=== PATIENT | male | born 1970 | race Caucasian/White ===

== ENCOUNTER 2020-12-04 17:39 | Emergency (ER) | payer BC, MEDICARE ==
[~2020-12-04] VITALS: Ht 188 cm; Wt 118.8 kg
--- OUTSIDE RECORDS SUMMARY | 2020-12-04 18:38 | XMS ---
PreManage Notification: KAEL DE LA TORRE Security Roll Scale Man Events No recent Security Events currently on file CRITERIA MET - PDM [facility] PHONE: [phone] Zita has no Care Guidelines for this patient. EKeren VISIT COUNT (12 MO.) 1 [facility] 1 SHAINA Camarillo TOTAL 2 NOTE: Visits indicate total known visits. ED/UCC VISIT TRACKING (12 MO.) 12/04/2020 17:40 SHAINA Haynes [place] TYPE: Emergency COMPLAINT: - LT FOOT PAIN [facility] DIAGNOSES: - Cellulitis of buttock - abscess INPATIENT VISIT TRACKING (12 MO.) No inpatient visits to display in this time frame [id number]
== END 2020-12-04 19:00 | disposition home or self-care (01) ==
LOC: ED 17:39
DX: S90.32XA Contusion of left foot, initial encounter (principal); W20.8XXA Other cause of strike by thrown, projected or falling object, initial encounter; E11.42 Type 2 diabetes mellitus with diabetic polyneuropathy; I10 Essential (primary) hypertension; Z88.8 Allergy status to other drugs, medicaments and biological substances
CPT/HCPCS: 73630; 99283-25

== ENCOUNTER 2021-07-25 17:35 | Emergency (ER) | payer MEDICARE ==
[~2021-07-25] VITALS: Ht 188 cm; Wt 120.7 kg
[~2021-07-25 17:35] MED LIST: ASPIRIN81 MG PO; ATORVASTATIN CA40 MG PO; CELECOXIB100 MG PO; CYCLOBENZAPRINE10 MG PO; LANTUS100 UNITS/ SUB-Q; METFORMIN HCL1000 MG PO; METOPROLOL TART25 MG PO; OMEPRAZOLE20 MG PO; OXYCODONE HCL5 MG PO; ZOLPIDEM TARTRA10 MG PO
--- OUTSIDE RECORDS SUMMARY | 2021-07-25 17:38 | XMS ---
PreManage Notification: KAEL DE LA TORRE Security Hat Mender Events No recent Security Events currently on file CRITERIA MET - PDMP [facility] PHONE: [phone] Zita has no Care Guidelines for this patient. EKeren VISIT COUNT (12 MO.) 3 SHAINA Camarillo TOTAL 3 NOTE: Visits indicate total known visits. ED/UCC VISIT TRACKING (12 MO.) 07/25/2021 17:37 SHAINA Haynes [place] TYPE: Emergency COMPLAINT: - R FOOT INDEX TOE WOUND 03/08/2021 18:21 SHAINA Haynes [place] TYPE: Emergency COMPLAINT: - R KNEE SWELLING/INJURY DIAGNOSES: - Other long term care phlebotomist (current) drug therapy - Type 2 diabetes mellitus without complications - Allergy status to other drugs, medicaments and biological substances - Effusion, right knee - Essential (primary) hypertension - halfway (current) use of insulin - halfway (current) use of aspirin - halfway (current) use of oral hypoglycemic drugs 12/04/2020 17:40 SHAINA Haynes [place] TYPE: Emergency COMPLAINT: - LT FOOT PAIN DIAGNOSES: - Type 2 diabetes mellitus without complications - Other external cause status - Contusion of left foot, initial encounter - Contusion of left great toe without damage to nail, initial encounter - Type 2 diabetes mellitus with diabetic polyneuropathy - Contusion of left foot, initial encounter - Allergy status to other drugs, medicaments and biological substances - Essential (primary) hypertension - Other cause of strike by thrown, projected or falling object, initial encounter - Abrasion, left great toe, initial encounter - Contusion of left great toe without damage to nail, initial encounter INPATIENT VISIT TRACKING (12 MO.) No inpatient visits to display in this time frame [id number]
[2021-07-25] MEDS ORDERED: BACTRIM DS TAB1 EACH PO (19:53)
== END 2021-07-25 20:00 | disposition home or self-care (01) ==
LOC: ED 17:35
DX: L03.031 Cellulitis of right toe (principal); E11.9 Type 2 diabetes mellitus without complications; I10 Essential (primary) hypertension; Z88.8 Allergy status to other drugs, medicaments and biological substances; Z79.899 Other long term (current) drug therapy; Z79.82 Long term (current) use of aspirin; Z79.84 Long term (current) use of oral hypoglycemic drugs; Z79.4 Long term (current) use of insulin
CPT/HCPCS: 99283; A9270

== ENCOUNTER 2021-08-16 09:06 | Emergency (ER) | payer MEDICARE ==
[~2021-08-16] VITALS: Ht 188 cm; Wt 121.1 kg
[~2021-08-16 09:06] MED LIST changes: +BACTRIM DS TAB1 EACH PO
--- OUTSIDE RECORDS SUMMARY | 2021-08-16 09:08 | XMS ---
PreManage Notification: KAEL DE LA TORRE Security Head Inspector And Center Marker Events No recent Security Events currently on file CRITERIA MET - [facility] - 2 Visits in 30 Days - [facility] Current PHONE: [phone] Zita has no Care Guidelines for this patient. Day VISIT COUNT (12 MO.) 4 [facility] TOTAL 4 NOTE: Visits indicate total known visits. ED/UCC VISIT TRACKING (12 MO.) 08/16/2021 09:06 SHAINA [facility]nes [place] TYPE: Emergency COMPLAINT: - WOUND CHECK 07/25/2021 17:37 SHAINA Haynes [place] TYPE: Emergency COMPLAINT: - WOUND CHECK DIAGNOSES: - Other jail (current) drug therapy - Type 2 diabetes mellitus without complications - Cellulitis of right toe - [facility] (current) use of oral hypoglycemic drugs - Other specified disorders of the skin and subcutaneous tissue - Allergy status to other drugs, medicaments and biological substances - Essential (primary) hypertension - [facility] (current) use of insulin - termite exterminator helper (current) use of aspirin 03/08/2021 18:21 SHAINA Haynes [place] TYPE: Emergency COMPLAINT: - R KNEE SWELLING/INJURY DIAGNOSES: - Other termite exterminator helper (current) drug therapy - Type 2 diabetes mellitus without complications - Allergy status to other drugs, medicaments and biological substances - Effusion, right knee - Essential (primary) hypertension - [facility] (current) use of insulin - termite exterminator helper (current) use of aspirin - [facility] (current) use of oral hypoglycemic drugs 12/04/2020 [...] visits to display in this time frame [id number]
[2021-08-16] MEDS ORDERED: AMOX TR-K CLV1 EAC1 PO (11:59)
== END 2021-08-16 12:43 | disposition home or self-care (01) ==
LOC: ED 09:06
DX: L03.115 Cellulitis of right lower limb (principal); E11.9 Type 2 diabetes mellitus without complications; I10 Essential (primary) hypertension; Z88.8 Allergy status to other drugs, medicaments and biological substances; Z79.899 Other long term (current) drug therapy; Z79.84 Long term (current) use of oral hypoglycemic drugs; Z79.82 Long term (current) use of aspirin; Z79.4 Long term (current) use of insulin
CPT/HCPCS: 36415; 73630; 80053; 85025; 96365; 99283-25; J0295

== ENCOUNTER 2021-09-05 05:55 | Day surgery (SDC) | payer MEDICARE ==
[~2021-09-05] VITALS: Ht 188 cm; Wt 118.0 kg
[~2021-09-05 05:55] MED LIST changes: +AMOX TR-K CLV1 EAC1 PO
--- NOTE | 2021-09-05 08:03 | NUR ---
09/05/21 0803 Marianela Mckinley 7351-PATIENT ARRIVED TO PACU ON 2L OXYMASK RR EVEN. PATIENT REACTIVE TO VERBAL STIMULI OPENING EYES REMAINS VERY DROWSY AND DOZES BACK TO SLEEP. APNEIC PATIENT AROUSES AND TAKES DEEP BREATHES. IVF INFUSING. ABDOMEN SOFT. SR.
--- NOTE | 2021-09-05 09:58 | OR ---
[facility] [address], [place] [address] Signed DATE OF OPERATION: 09/05/2021 SURGEON: Mitali Kessler MD PREOPERATIVE DIAGNOSES: 1. Screening. 2. Mild anemia with hemoglobin of 11.8, mean cell volume of 85. POSTOPERATIVE DIAGNOSIS: Poor bowel prep. PROCEDURE: Colonoscopy biopsy. ESTIMATED BLOOD LOSS: None. INDICATIONS: Kael is a 50-year-old gentleman, who comes for his initial screening colonoscopy. He reminded me that I helped his just a few weeks previously. He has no lower GI complaints. There is no family history of colon cancer or polyps. Unfortunately, he has had to have neck and back surgery with metal remaining. He also has a nerve stimulator. He has to use daily oxycodone and Flexeril. In that regard, we did have monitored anesthesia care today which worked out well for him. In the office, I gave him a pamphlet on colonoscopy. He understands the nature of the test. There is risk including, but not limited to gas bloating, crampy abdominal pain, bleeding, perforation requiring surgery, and missed diagnosis. He had expressed understanding and wished to proceed. PROCEDURE NOTE: Kael was taken into our endoscopy suite and placed in the left lateral decubitus position. He was given monitored anesthesia care with propofol per our nurse golf shoe spike assembler. A digital rectal exam was performed and this was unremarkable. Really not much of anything in the way of external hemorrhoids. He had good sphincter tone. Prostate was not particularly evaluated today. The adult colonoscope had been introduced and advanced under direct visualization of the camera. Unfortunately, he had a poor bowel prep. He had several areas of thick brown liquid stool with heavy particulate matter including corn. I was able to pass very carefully around these areas up into the cecum itself. We could easily see the appendiceal orifice and the ileocecal valve. The scope was then slowly withdrawn. I would say at least 50% to 60% of his Electronically Signed By: MITALI KESSLER MD 09/05/21 0958 PATIENT NAME: KAEL DE LA TORRE OPERATIVE REPORT DATE OF : 68 REPORT #: [id number] PHYSICIAN: MITALI KESSLER MD PCP: FAWN MOONEY MD REPORT IS CONFIDENTIAL AND NOT TO BE RELEASED WITHOUT AUTHORIZATION [facility] [address], [place] [address] Signed mucosa was visualized. Otherwise, he had areas in the right colon and transverse colon we simply could not see. He also had some areas in the rectum that I could not see. Upon retroflexion of the scope, I could only see half the anus. No issues in that regard. After this, the gas was suctioned out and the colonoscope removed. Kael tolerated the procedure quite well. RECOMMENDATIONS: I will see Kael back in my office in 7 to 14 days to review his results. He needs to reschedule his colonoscopy with a double bowel prep. Mitali Kessler MD ALB/MODL /[id number] cc: MD Mitali Chavez MD Copies: FAWN MOONEY MD, ANDREW L MD ~ Electronically Signed By: MITALI KESSLER MD 09/05/21 0958 PATIENT NAME: KAEL DE LA TORRE OPERATIVE REPORT DATE OF : 68 REPORT #: [id number] PHYSICIAN: MITALI KESSLER MD PCP: FAWN MOONEY MD REPORT IS CONFIDENTIAL AND NOT TO BE RELEASED WITHOUT AUTHORIZATION
== END 2021-09-05 08:32 | disposition home or self-care (01) ==
LOC: DS 05:55 → OPS 05:55 → DS 07:30 → OPS 07:30
PROVIDERS: ATTEND Colon & Rectal Surgery
PROC: 0DJD8ZZ Inspection of Lower Intestinal Tract, Via Natural or Artificial Opening Endoscopic (ICD-10-PCS; principal; 2021-09-05 07:30)
DX: Z12.11 Encounter for screening for malignant neoplasm of colon (principal); E11.9 Type 2 diabetes mellitus without complications; I10 Essential (primary) hypertension; G89.29 Other chronic pain; F11.90 Opioid use, unspecified, uncomplicated; Z79.84 Long term (current) use of oral hypoglycemic drugs
CPT/HCPCS: J0690; J2001; J2704; J7121

== ENCOUNTER 2022-01-20 02:05 | Emergency (ER) | payer MEDICARE ==
[~2022-01-20] VITALS: Ht 188 cm; Wt 123.0 kg
--- OUTSIDE RECORDS SUMMARY | 2022-01-20 02:08 | XMS ---
PreManage Notification: KAEL DE LA TORRE Security Manager Culinary Events No recent Security Events currently on file CRITERIA MET - [facility]M [facility] PHONE: [phone] Zita has no Care Guidelines for this patient. EKeren VISIT COUNT (12 MO.) 1 [facility] SHAINA Camarillo TOTAL 5 NOTE: Visits indicate total known visits. ED/UCC VISIT TRACKING (12 MO.) 01/20/2022 02:06 SHAINA Haynes [place] TYPE: Emergency COMPLAINT: - FACIAL SWELLING [facility]20[facility]2021 11:[facility] DIAGNOSES: - Non-pressure chronic ulcer of other part of right foot with necrosis of bone - Osteomyelitis, unspecified - Type 2 diabetes mellitus with foot ulcer - Foot Wound - poss leg infection - Skin Redness With Swelling 08/16/2021 09:06 SHAINA Haynes [place] TYPE: Emergency COMPLAINT: - WOUND CHECK DIAGNOSES: - manager training (current) use of aspirin - Allergy status to other drugs, medicaments and biological substances - Other management supervisor (current) drug therapy - Type 2 diabetes mellitus without complications - Cellulitis of right lower limb - [facility] (current) use of oral hypoglycemic drugs - manager training (current) use of insulin - Essential (primary) hypertension 07/25/2021 17:37 SHAINA Haynes [place] TYPE: Emergency COMPLAINT: - WOUND CHECK DIAGNOSES: - Other specified disorders of the skin and subcutaneous tissue - Cellulitis of right toe - Other management supervisor (current) drug therapy - manager training (current) use of insulin - Allergy status to other drugs, medicaments and biological substances - [facility] (current) use of oral hypoglycemic drugs - Type 2 diabetes mellitus without complications - [facility] (current) use of aspirin - Essential (primary) hypertension 03/08/2021 18:21 SHAINA Haynes [place] TYPE: Emergency COMPLAINT: - R KNEE SWELLING/INJURY DIAGNOSES: - Essential (primary) hypertension - Allergy status to other drugs, medicaments and biological substances - Other management supervisor (current) drug therapy - [facility] (current) use of oral hypoglycemic drugs - [facility] (current) use of insulin - Effusion, right knee - Type 2 diabetes mellitus without complications - manager training (current) use of aspirin INPATIENT VISIT TRACKING (12 MO.) No inpatient visits to display in this time frame [id number]
[2022-01-20] MEDS ORDERED: ZANAFLEX4 MG PO (02:16)
[2022-01-20] MEDS ORDERED: BUPRENORPHINE HC8 MG SL (02:17)
[2022-01-20] MEDS ORDERED: PREDNISONE20 MG PO (02:43)
== END 2022-01-20 03:21 | disposition home or self-care (01) ==
LOC: ED 02:05
DX: T63.441A Toxic effect of venom of bees, accidental (unintentional), initial encounter (principal); R22.0 Localized swelling, mass and lump, head; E11.9 Type 2 diabetes mellitus without complications; I10 Essential (primary) hypertension; Z88.8 Allergy status to other drugs, medicaments and biological substances; Z79.899 Other long term (current) drug therapy; Z79.82 Long term (current) use of aspirin; Z79.4 Long term (current) use of insulin
CPT/HCPCS: J1200; J2930

== ENCOUNTER → 2022-02-07 | Emergency (ER) | payer MEDICARE ==
[~2022-02-07] VITALS: Ht 188 cm; Wt 115.5 kg
[~2022-02-07] MED LIST changes: +BUPRENORPHINE HC8 MG SL; +PREDNISONE20 MG PO; +REGLAN10 MG PO; +ZANAFLEX4 MG PO
--- OUTSIDE RECORDS SUMMARY | 2022-02-07 18:08 | XMS ---
PreManage Notification: KAEL DE LA TORRE Security Customer Assistant Events No recent Security Events currently on file CRITERIA MET - [facility] - 2 Visits in 30 Days [facility] PHONE: [phone] Zita has no Care Guidelines for this patient. Day VISIT COUNT (12 MO.) 1 [facility] Michaela Simpson [address] [place] [address] TOTAL 6 NOTE: Visits indicate total known visits. ED/UCC VISIT TRACKING (12 MO.) 02/07/2022 17:27 SHAINA Pierson TYPE: Emergency COMPLAINT: - VOMITING 01/20/2022 02:06 SHAINA Pierson TYPE: Emergency COMPLAINT: - FACIAL SWELLING DIAGNOSES: - Allergy status to other drugs, medicaments and biological substances - Type 2 diabetes mellitus without complications - intermediate accountant (current) use of aspirin - Other jail (current) drug therapy - Essential (primary) hypertension - Localized swelling, mass and lump, head - intermediate accountant (current) use of insulin - Toxic effect of venom of bees, accidental (unintentional), initial encounter [facility]21 [facility] DIAGNOSES: - Non-pressure chronic ulcer of other part of right foot with necrosis of bone - Osteomyelitis, unspecified - Type 2 diabetes mellitus with foot ulcer - Foot Wound - poss leg infection - Skin Redness With Swelling 08/16/2021 09:06 SHAINA Haynes [place] TYPE: Emergency COMPLAINT: - WOUND CHECK DIAGNOSES: - intermediate accountant (current) use of aspirin - Allergy status to other drugs, medicaments and biological substances - Other terminal manager (current) drug therapy - Type 2 diabetes mellitus without complications - Cellulitis of right lower limb - intermediate accountant (current) use of oral hypoglycemic drugs - intermediate accountant (current) use of insulin - Essential (primary) hypertension 07/25/2021 17:37 SHAINA Haynes [place] TYPE: Emergency COMPLAINT: - WOUND CHECK DIAGNOSES: - Other specified disorders of the skin and subcutaneous tissue - Cellulitis of right toe - Other jail (current) drug therapy - intermediate (current) use of insulin - Allergy status to other drugs, medicaments and biological substances - intermediate (current) use of oral hypoglycemic drugs - Type 2 diabetes mellitus without complications - intermediate (current) use of aspirin - Essential (primary) hypertension 03/08/2021 18:21 SHAINA Haynes [place] TYPE: Emergency COMPLAINT: - R KNEE SWELLING/INJURY DIAGNOSES: - Essential (primary) hypertension - Allergy status to other drugs, medicaments and biological substances - Other jail (current) drug therapy - intermediate (current) use of oral hypoglycemic drugs - intermediate accountant (current) use of insulin - Effusion, right knee - Type 2 diabetes mellitus without complications - intermediate (current) use of aspirin INPATIENT VISIT TRACKING (12 MO.) No inpatient visits to display in this time frame [id number]
--- NOTE | 2022-02-08 07:35 | EKG ---
[facility] [address] [facility] [place] [address] Signed Normal sinus rhythm Normal ECG No previous ECGs available Confirmed by NINA DELANEY MD ([id number]) on 02/08/2022 7:35:00 AM Electronically Signed By: NINA DELANEY MD 02/08/22 0735 PATIENT NAME: KAEL DE LA TORRE HELADIO Electrocardiogram DATE OF : 68 PHYSICIAN: NINA DELANEY MD REPORT #: [id number] REPORT IS CONFIDENTIAL AND NOT TO BE RELEASED WITHOUT AUTHORIZATION
== END ==
LOC: ED 17:27
DX: E11.43 Type 2 diabetes mellitus with diabetic autonomic (poly)neuropathy (principal); K31.84 Gastroparesis; I10 Essential (primary) hypertension; Z79.899 Other long term (current) drug therapy; Z79.4 Long term (current) use of insulin; Z79.84 Long term (current) use of oral hypoglycemic drugs
CPT/HCPCS: 36415; 80053; 83690; 84484; 85025; 93005; 93010; 96374; 96375; 99284-25; J2405; J2765; J7121

== ENCOUNTER 2022-06-21 12:11 | Emergency (ER) | payer MEDICARE ==
[~2022-06-21] VITALS: Ht 188 cm; Wt 120.5 kg
--- OUTSIDE RECORDS SUMMARY | 2022-06-21 12:14 | XMS ---
PreManage Notification: KAEL DE LA TORRE Security Seo Executive Events No recent Security Events currently on file CRITERIA MET - PDM [facility] Current PHONE: [phone] Zita has no Care Guidelines for this patient. EKeren VISIT COUNT (12 MO.) 1 Jose Rafael Ott M[facility] SHAINA Camarillo TOTAL 6 NOTE: Visits indicate total known visits. ED/UCC VISIT TRACKING (12 MO.) 06/21/2022 12:12 SHAINA Haynes [place] TYPE: Emergency COMPLAINT: - TOE PAIN 02/07/2022 17:27 SHAIAN Haynes [place] TYPE: Emergency COMPLAINT: - VOMITING DIAGNOSES: - Other custodial (current) drug therapy - rn long term care (current) use of oral hypoglycemic drugs - Essential (primary) hypertension - rn long term care (current) use of insulin - Nausea with vomiting, unspecified - Type 2 diabetes mellitus with diabetic autonomic (poly)neuropathy - Gastroparesis 01/20/2022 02:06 SHAINA Haynes [place] TYPE: Emergency COMPLAINT: - FACIAL SWELLING DIAGNOSES: - Localized swelling, mass and lump, head - residential (current) use of insulin - Toxic effect of venom of bees, accidental (unintentional), initial encounter - Allergy status to other drugs, medicaments and biological substances - Type 2 diabetes mellitus without complications - residential (current) use of aspirin - Other ad terminal makeup operator (current) drug therapy - Essential (primary) hypertension [facility] DIAGNOSES: - poss leg infection - Skin Redness With Swelling - Non-pressure chronic ulcer of other part of right foot with necrosis of bone - Osteomyelitis, unspecified - Type 2 diabetes mellitus with foot ulcer - Foot Wound 08/16/2021 09:06 SHAINA Pierson TYPE: Emergency COMPLAINT: - WOUND CHECK DIAGNOSES: - residential (current) use of oral hypoglycemic drugs - residential (current) use of insulin - Essential (primary) hypertension - residential (current) use of aspirin - Allergy status to other drugs, medicaments and biological substances - Other custodial (current) drug therapy - Type 2 diabetes mellitus without complications - Cellulitis of right lower limb 07/25/2021 17:37 SHAINA Pierson TYPE: Emergency COMPLAINT: - WOUND CHECK DIAGNOSES: - rn long term care (current) use of oral hypoglycemic drugs - Type 2 diabetes mellitus without complications - rn long term care (current) use of aspirin - Essential (primary) hypertension - Other specified disorders of the skin and subcutaneous tissue - Cellulitis of right toe - Other ad terminal makeup operator (current) drug therapy - rn long term care (current) use of insulin - Allergy status to other drugs, medicaments and biological substances INPATIENT VISIT TRACKING (12 MO.) No inpatient visits to display in this time frame [id number]
[2022-06-21] MEDS ORDERED: FLUTICASONE PRO16 GM NAS (13:15)
[2022-06-21] MEDS ORDERED: AMOX TR-K CLV1 EAC1 PO (14:45)
== END 2022-06-21 14:58 | disposition home or self-care (01) ==
LOC: ED 12:11
DX: S92.411A Displaced fracture of proximal phalanx of right great toe, initial encounter for closed fracture (principal); L03.031 Cellulitis of right toe; E11.65 Type 2 diabetes mellitus with hyperglycemia; I10 Essential (primary) hypertension; Z88.8 Allergy status to other drugs, medicaments and biological substances; Z79.899 Other long term (current) drug therapy; Z79.84 Long term (current) use of oral hypoglycemic drugs; Z79.82 Long term (current) use of aspirin; Z79.4 Long term (current) use of insulin; W22.8XXA Striking against or struck by other objects, initial encounter
CPT/HCPCS: 36415; 73660; 80053; 85025; 96374; 99283-25; J0295